=== PATIENT | male | born 1985 | race Caucasian/White ===

== ENCOUNTER → 2017-10-23 | Outpatient (CLI) | payer OTHER ==
--- NOTE | 2017-10-23 15:58 | Diagnostic Imaging Report ---
TECHNIQUE: Magnetic resonance imaging of the left KNEE was performed WITHOUT injected contrast. HISTORY: knee pain COMPARISON: None available. FINDINGS: LIGAMENTS AND TENDONS: ACL: Intact PCL: Intact Collateral ligaments: Intact Iliotibial band: Unremarkable Popliteal tendon: Intact Extensor mechanism: Intact JOINT: Menisci: Medial: Intact Lateral: Intact Articular Cartilage: Medial Compartment: No focal defect. Lateral Compartment: No focal defect. Patellofemoral Compartment: Dorsal defect of the patella with focal cartilage fissure axial image 11. Joint Fluid: The amount of fluid within the joint is within physiologic limits. BONE: No focal or infiltrative bone marrow replacing abnormality. No acute fracture. SOFT TISSUES: Otherwise, unremarkable. IMPRESSION: Dorsal defect of the patella with probable cartilage fissure. No acute or ligamentous abnormality. Signed by: Dr. Dave Dsouza M.D. on 10/23/2017 3:54 PM
== END ==
LOC: MRI 14:46
PROVIDERS: ATTEND Family Medicine
DX: M25.562 Pain in left knee (principal)